=== PATIENT | male | born 1990 | race Caucasian/White ===

== ENCOUNTER 2019-12-07 02:48 | Outpatient (CLI) | payer OTHER, SELFPAY ==
[2019-12-08 18:27] LABS: COVID-19 RT-PCR Result NEGATIVE (Negative)
== END 2019-12-07 03:08 ==
PROVIDERS: PCP Nurse Practitioner Adult Health; Visit Provider Surgery
DX: Z11.59 Encounter for screening for other viral diseases (principal); Z01.818 Encounter for other preprocedural examination
CPT/HCPCS: U0003

== ENCOUNTER 2019-12-10 09:00 | Day surgery (SDC) | payer OTHER, SELFPAY ==
[2019-12-10] VITALS (8 sets, daily range): BP systolic 74–131; BP diastolic 32–75; PULSE 51–65; RESP 12–16; TEMP 35.8–36.5; O2SAT 97–99
[2019-12-10] MEDS: Acetaminophen 500 MG TAB 1000 MG PO (09:38)
[2019-12-10] MEDS: Gabapentin 300 MG CAP PO (09:38)
[2019-12-10] MEDS: Lactated Ringers 1,000 ML 80 ML IV ×2 (09:55→13:19)
[2019-12-10] MEDS: ceFAZolin 2 GM/50 ML BAG IVPB (11:42)
[2019-12-10] MEDS: Bupivacaine LIPOSOME/PF 133 MG/10 ML VIAL IJ ×2 (11:57→12:24)
[2019-12-10] MEDS: Bupivacaine 0.25% Pres-Free 30 ML VIAL (11:57)
--- NOTE | 2019-12-10 12:53 | W.PM.DSUDISC ---
Discharge Plan Disposition Patient Disposition: HOME Condition: Good Discharge Details Reason For Visit: left direct inguinal hernia repair Attending Provider: Medina Chiu Primary Care Provider: Constance Pack Home Meds and New Rx's Prescriptions: New naproxen sodium 550 mg tablet 550 mg PO Q12H Qty: 50 RF: 2 tramadol 50 mg tablet 50 mg PO Q6H PRNQty: 10 RF: 0 Continued gabapentin 300 mg capsule 300 mg PO TID PRNRF: 0 No Action naproxen 500 mg tablet 500 mg PO PRN RF: 0 Discharge Instructions Additional Instructions: Dr. Cihu HERNIA REPAIR ? POSTOPERATIVE INSTRUCTIONS Patients who have this type of surgery can usually be expected to return to work within two weeks and have minimal amounts of discomfort. ? ACTIVITY: The day of surgery should be spent resting. However, you can be up for short periods of time, I.E., going to the bathroom or kitchen. Avoid lifting or straining. On the day following surgery, you can be up and about as desired. ? LIFTING: Restrict your lifting to no more than five (5) pounds for the first week following surgery. For the second week after surgery, don?t lift more than ten pounds. We will decide when you are done with restrictions and when you can return to work, at your follow-up appointment. ? DIET: There are no dietary restrictions following surgery. However, you may want to start with small amounts of liquids to avoid nausea the day of surgery. ? INCISION CARE: You will notice purple skin glue closing the incision. Do not peel this off- it will wear off on its own. After 24 hours you may shower. The dressing may be replaced for comfort, but is not necessary. An ice bag may be applied to the incision for 72 hours following surgery. ? SIGNS OF INFECTION: It is not unusual to have some black and blue discoloration of the skin around the incision, but also scrotum and penis. It will slowly disappear. If you have any increased redness, drainage, fever (above 100 degrees), please contact your doctor for an examination. ? DISCOMFORT: You may expect to have some mild discomfort at the incision sight. If severe pain develops you should contact your doctor for further instructions. ? URINATION: Patients who have surgery occasionally have problems urinating. If you experience problems and are not able to urinate within 6 hours following your surgery, please call your doctor immediately or go to your nearest Emergency Room for evaluation. ? DRIVING: NO driving for five (5) days after surgery or if you are still taking narcotic pain medication. ? MEDICATIONS: Alternate Tylenol 1000mg by mouth every 8hours and Ibuprofen 600mg every 6hours. Take the Tylenol and ibuprofen continuously for the first 72hrs- not just when you have pain. Use the tramadol for breakthrough pain. Use ICE! Twenty minutes on, and then off, continuously for the first 72hours. If you are taking narcotic pain medication, follow the instructions on the label and do not drive. Pain medications can make you very constipated. Make sure you are moving your bowels daily. If not, take Miralax, milk of magnesia or magnesium citrate. ? REPORT: Unusual swelling, severe pain, unresolved nausea, signs of infection, or difficulty in urination to your surgeon. Follow up in clinic with Dr. Chiu in 1-2 weeks. [phone] Follow- up appt 12/25 at 3pm. Activity:: see above Shower/Bathe:: 24 hours Diet:: As Tolerated DS: Diagnosis Discharge Diagnosis (1) Left inguinal hernia: Status: Acute
--- NOTE | 2019-12-10 13:11 | ROE_ITS ---
Date of service: 12/10/19 Time of Service: 13:11 Operative Note Operative Note DATE OF PROCEDURE: 12/10/19 PRE-OP DIAGNOSIS: left inguinal hernia POST-OP DIAGNOSIS: same (direct ) open repair w/ mesh PROCEDURE: open repair w/ mesh SURGEON: Julio César Wynne HEEL PAINTER: Ariadne Jennings ANESTHESIA: MAC ESTIMATED BLOOD LOSS: 3 PATHOLOGY: none sent Patient was transported to: same day Procedure Description: INDICATIONS: The pt is here today for surgery regarding symptomatic left inguinal hernia that has failed outpatient conservative medical management and he is here today for repair. Informed consent was obtained, explaining risks and benefits of the procedure including but not limited to bleeding, infection, pneumonia, blood clots, chronic pain, chronic numbness, dam age to testicle resulting in removal, recurrence of hernia, reaction to Mesh necessitating removal, and other unforetold complications, and complications of anesthesia-which were addressed by the NEWSPAPER REPORTER. The patient is marked in preOp prior to the procedure DESCRIPTION OF PROCEDURE: The pt is then brought to the operative room suite. Anesthesia was administered per the Department of Anesthesia. The patient was prepped and draped in the usual sterile fashion using ChloraPrep & betadine scrub solution. Pause for the cause was done. He did receive preop IV antibiotics, and 30 mL of .25% Marcaine w/ epinephrine was used for local anesthetization. A #12 blade was used to make an incision over the external ring. Electrocautery used to provide hemostasis and dissect down to the fascia. Small debbie is made in the external oblique. This is carried superiorly and inferiorly. The cord is elevated. The nerve was not identified. There is no cord lipomas. Electro-cautery is used to provide hemostasis. A Hiram drain was placed around the cord to assist in mobilization. The cord was explored. There was no hernia sac on the cord. There is a medium direct hernia pushing through the floor/portruding through the transversalis. The sac is elevated and scored and inverted. A medium mesh plug was then placed into the defect and oversewn into transversalis. The patch was then placed on the floor and sewn in using 2-0 Vicryl sewn into the pubic tubercle and the shelving portions of the inguinal ligament. The tails of the mesh are brought around the very superior portion of the cord and tucked under the external oblique. External Bleich is then reapproximated with 2-0 vicryl in a running fashion. The wound was copiously irrigated. There was no bleeding noted. The drain is removed. All s tructures are returned to there normal anatomic position. The external oblique is than closed in a running fashion with 2-0 vicryl, taking care to not incorporate the nerve into the incision. Deep tissue was approximated with 3-0 Vicryl and skin was approximated with 4-0 Monocryl in a running subcuticular fashion. Skin glue is applied. The patient tolerated the procedure without complications to recovery in stable condition. JULIO CÉSAR WYNNE, DO
== END 2019-12-10 15:13 | disposition home or self-care (01) ==
PROVIDERS: PCP Nurse Practitioner Adult Health; Visit Provider Surgery
PROC: (CPT 49505; principal; 2019-12-10 09:30)
DX: K40.90 Unilateral inguinal hernia, without obstruction or gangrene, not specified as recurrent (principal)
CPT/HCPCS: 49505; 76942; C1781; J0690; J1100; J1885; J2001; J2405

== ENCOUNTER 2020-12-09 01:57 | Outpatient (CLI) | payer OTHER, SELFPAY ==
[2020-12-09 09:12] LABS: Abs Immature Grans 0.01 10^3/uL (0.0-0.06); Absolute Basophil Count 0.01 10^3/uL (0.0-0.2); Absolute Lymphocyte Count 1.72 10^3/uL (1.2-3.4); Absolute Monocyte Count 0.34 10^3/uL (0.1-0.8); Absolute Neutrophil Count 2.01 10^3/uL (1.2-6.7); Basophils % 0.2; Eosinophils % 4.7; HCT 43.5 % (40.0-50.0); HGB 14.5 g/dL (13.5-17.5); Immature Grans % 0.2; Lymphocytes % 40.1; MCH 30.8 pg (27.0-33.0); MCHC 33.3 % (32.0-36.0); MCV 92.4 fL (80-95); MPV 10.7 fL (8.0-11.0); Monocytes % 7.9; Neutrophils % 46.9; Nucleated RBC 0 %; Platelet Count 201 10^3/uL (130-400); RBC 4.71 10^6/uL (4.36-5.78); RDW 11.8 % (11.8-14.1); WBC 4.29 10^3/uL (4.4-10.8)
[2020-12-09 11:07] LABS: ALT 27 U/L (16-63); AST 18 U/L (15-37); Albumin 4.4 g/dL (3.4-5.0); Alkaline Phosphatase 78 U/L (46-116); Anion Gap 7.5 mmol/L (3-11); BUN 18 mg/dL (7-18); Bilirubin, Total 0.6 mg/dL (0.2-1.0); CO2 30.5 mmol/L (21.0-32.0); CREATININE 1.1 mg/dL (0.70-1.30); Calcium 8.7 mg/dL (8.5-10.1); Calculated LDL 94 mg/dL (<100); Chloride 106 mmol/L (98-107); Cholesterol 159 mg/dL (<200); Glucose 85 mg/dL (74-106); HDL Cholesterol 59 mg/dL (40-60); Potassium 4.6 mmol/L (3.5-5.1); Sodium 144 mmol/L (136-145); TSH (W/Ref FT4) 1.71 uIU/mL (0.36-3.74); Total Protein 7.2 g/dL (6.4-8.2); Triglyceride 30 mg/dL (<150); Vitamin B12 1094 pg/mL (193-986)
[2020-12-10 10:16] LABS: Hepatitis C Ab w Rflx HCV PCR Negative (Negative)
[2020-12-10 10:24] LABS: HIV-1/2 Ag & Ab Screen Negative (Negative)
[2020-12-12 17:36] LABS: Testosterone, Total 643 ng/dL (240-950)
== END 2020-12-09 01:58 | disposition home or self-care (01) ==
LOC: LBO 01:58
PROVIDERS: PCP Nurse Practitioner Adult Health; Visit Provider Nurse Practitioner Adult Health
DX: R53.83 Other fatigue; Z13.220 Encounter for screening for lipoid disorders; Z11.4 Encounter for screening for human immunodeficiency virus [HIV]; Z11.59 Encounter for screening for other viral diseases; Z13.1 Encounter for screening for diabetes mellitus
CPT/HCPCS: 36415; 80053; 80061; 84403; 86803; 87389; 82607; 84443; 85025

== ENCOUNTER → 2021-09-08 01:46 | Outpatient (CLI) | payer OTHER, SELFPAY ==
--- NOTE | 2021-09-08 11:35 | DI.RAD_ITS ---
Exam(s) XR LUMBAR SPINE COMPLETE EXAM: XR LUMBAR SPINE COMPLETE CLINICAL HISTORY: LOW BACK PAIN, M54.50,[id number]. TECHNIQUE: 2D digital imaging was performed. COMPARISON: No exams were available for comparison FINDINGS: Five views There is no evidence of fracture, listhesis, or pars defects. There is mild disc space narrowing at L4-5 and L5-S1 levels and mild anterior osseous lipping at L4-5 level. No facet arthropathy. Sacroi liac joints appear unremarkable. No scoliosis. No osseous lesions. IMPRESSION: Minimal disc space narrowing noted at L4-5 level. DATA REPOSITORY: RADIATION DOSE DELIVERED:
== END ==
PROVIDERS: PCP Nurse Practitioner Adult Health; Visit Provider Nurse Practitioner Acute Care
DX: M54.59 Other low back pain (principal); M51.37 Other intervertebral disc degeneration, lumbosacral region
CPT/HCPCS: 72110

== ENCOUNTER 2022-04-01 07:22 | Emergency (ER) | payer OTHER, SELFPAY ==
[2022-04-01 07:26] VITALS: BP 121/78; PULSE 86; RESP 16; TEMP 37; O2SAT 100
--- NOTE | 2022-04-01 08:03 | W.ED.GENAD ---
Discharge Plan Disposition Patient Disposition: Home Condition: Stable Discharge Details Clinical Impression: Headache, Viral syndrome Primary Care Provider: Constance Pack ED Provider: Alin Falk Home Meds and New Rx's Prescriptions: New ondansetron 4 mg tablet,disintegrating 4 mg PO Q8H PRN (Reason: Nausea) Qty: 10 0RF Continued gabapentin 300 mg capsule 300 mg PO TID PRN Label Comments: [facility] celecoxib [Celebrex] 200 mg capsule 200 mg PO BID Discharge Instructions Instructions: Viral Syndrome (ED), General Headache (ED) Additional Instructions: Please drink small amounts of fluid often in order to stay hydrated. Allow for plenty of rest. Please contact your primary care physician to arrange follow-up. Return to the ER immediately for any worsening or new concerning symptoms. Stand Alone Forms: Work Release Referrals: Constance Pack, [employer] [Primary Care Provider] - Discharge Data Discharge Date/Time-TO BE ENTERED AT DEPARTURE: 04/01/22 12:56 Medical Decision Making <Julia Pitt DO - Last Filed: 04/01/22 20:44> 0740 -- 31-year-old male with a history of chronic back pain on 3 times daily gabapentin and as needed Celebrex presents with 5 days of headache, generalized malaise and fatigue, nausea, vomiting, diarrhea and body aches. Vitals within normal limits. Patient appears generally fatigued but nontoxic. No acute findings on ENT exam. Lungs clear throughout. Abdomen soft and nontender. I checked an oral temp in the room and it was 98.6. High suspicion for influenza or COVID. Consider other viral illness. History and presentation does not appear consistent with meningitis, CVA or subarachnoid hemorrhage. A SARS COVID and flu antigen test on arrival obtained by nurse and negative. Will obtain a Fluvid, screening labs and give IV fluids, IV Tylenol, IV Toradol, IV Zofran and reassess. 0815 --Case endorsed to Dr. Falk to follow-up on labs and patient response to medication. If patient does not feel any better or labs concerning, consider head or abdominal imaging. Medical Records Medical records reviewed: Yes I reviewed the patient's medical records. <Alin Falk MD - Last Filed: 04/01/22 12:35> 0740 -- 31-year-old male with a history of chronic back pain on 3 times daily gabapentin and as needed Celebrex presents with 5 days of headache, generalized malaise and fatigue, nausea, vomiting, diarrhea and body aches. Vitals within normal limits. Patient appears generally fatigued but nontoxic. No acute findings on ENT exam. Lungs clear throughout. Abdomen soft and nontender. I checked an oral temp in the room and it was 98.6. High suspicion for influenza or COVID. Consider other viral illness. History and presentation does not appear consistent with meningitis, CVA or subarachnoid hemorrhage. A SARS COVID and flu antigen test on arrival obtained by nurse and negative. Will obtain a Fluvid, screening labs and give IV fluids, IV Tylenol, IV Toradol, IV Zofran and reassess. 0815 --Case endorsed to Dr. Falk to follow-up on labs and patient response to medication. If patient does not feel any better or labs concerning, consider head or abdominal imaging. HPI <Julia Pitt DO - Last Filed: 04/01/22 20:44> General Mode of arrival: ambulatory. Date/Time Provider Initiated Documentation: 04/01/22 07:32. Limitations to Documentation: no limitations. Information obtained by: patient. HPI Narrative: Patient is a 31-year-old male with a history of chronic back pain on gabapentin 3 times daily and as needed Celebrex presents the ED with 5 days of headache, body aches, general malaise, nausea, vomiting, diarrhea. Patient states the headache is bothering him the most. He states his symptoms started with a right-sided headache 5 days ago and this morning is now developing pain on the left side of his head. Patient states the headache is currently 9/10. He last took Tylenol at 145 this morning. He states he has been taking Tylenol every 6 hours for the past 5 days and states it gives him about an hour of relief and then the headache returns. He states his last dose of ibuprofen was yesterday afternoon. He states he has been vomiting occasionally and states he last vomited yesterday. He states his last bowel movement was 3 days ago and was diarrhea. He admits to generalized fatigue and feels pain in his entire body with walking. He states he has not been eating or drinking much secondary to the nausea. He states his last dose of Celebrex for his chronic back pain was 1 week ago. He states he took a COVID antigen test yesterday which was negative. He denies any known fever, neck pain, ear pain, sore throat, chest pain, difficulty breathing, abdominal pain or urinary symptoms. He does state his urine has been dark in color. Related Data Home Medications Medication Instructions Recorded Confirmed gabapentin 300 mg capsule 300 mg PO TID PRN 09/19/19 04/01/22 celecoxib 200 mg capsule (Celebrex) 200 mg PO BID 01/25/22 04/01/22 ondansetron 4 mg disintegrating 4 mg PO Q8H PRN Nausea #10 tabs 04/01/22 tablet Previous Rx's Medication Instructions Recorded ondansetron 4 mg disintegrating 4 mg PO Q8H PRN Nausea #10 tabs 04/01/22 tablet Allergies Allergy/AdvReac Type Severity Reaction Status Date / Time No Known Allergies Allergy Verified 04/01/22 07:30 General Stated Complaint: Nausea/Vomit/Diar MICHAEL: 3 Review of Systems <Julia Pitt DO - Last Filed: 04/01/22 20:44> All systems reviewed & are unremarkable except as noted in HPI and below Constitutional Constitutional: Reports as per HPI, Reports body ache(s), Denies chills, Reports fatigue, Denies fever(s), Reports headache(s) and Reports malaise Eyes Eyes: Denies blurry vision ENT Ears, Nose, Mouth, and Throat: Denies dizziness, Reports headache(s), Denies sore throat and Denies throat swelling Cardiovascular Cardiovascular: Denies chest pain and Denies dyspnea Respiratory Respiratory: Denies cough and Denies dyspnea Gastrointestinal Gastrointestinal: Denies abdominal pain, Reports diarrhea, Reports nausea and Reports vomiting Genitourinary Genitourinary: Denies hematuria and Denies dysuria Musculoskeletal Musculoskeletal: Denies back pain and Denies numbness Integumentary/Breasts Skin/Breast: Denies lesions and Denies rash Neurologic Neurologic: Denies dizziness, Reports headache(s), Denies localized weakness and Denies numbness Endocrine Endocrine: Reports fatigue Allergic/Immunologic Allergic/Immunologic: Denies throat swelling PFS <DO Johanne Agrawal Last Filed: 04/01/22 20:44> All Active Problems (Updated 04/01/22 @ 12:31 by Alin Falk MD) Headache (Acute) Viral syndrome (Acute) Onychocryptosis (Acute) Medical History (Updated 04/01/22 @ 12:31 by Alin Falk MD) Blast injury ; Injury to ear, unsure which one History of fracture of finger B/L middle requiring surgical repair s/p childhood trampoline trauma Low back pain [facility]; [facility] related; [facility] Surgical History (Updated 04/01/22 @ 08:07 by Julia Pitt DO) H/O left inguinal hernia repair History of tonsillectomy 2011 Hx of LASIK 2011 Family History Maternal Grandfather Lung cancer Maternal Uncle Diabetes Father Hypertension Unknown family medical history pt doesn't know about his father's medical history Mother Hypothyroid Maternal Grandmother Afib Social History Smoking/Tobacco Use Status: Never Second Hand Exposure: Yes Smoking risk assessment performed?: Yes Alcohol Intake: current Alcohol Intake frequency: a few times a month Alcohol type: beer Drug use: Never Substance use type: does not use Details: alcohol: t-14, wine Adopted: No Caregiver/Support person: No Foster care: No Household members: spouse and children Housing: house Number of Children: 2 Communication Needs: None Education Level: college Details: Bachelors Do you need help understanding health information?: Never 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 [employer] Pets and animals: Yes Sexually active: Yes Do you think of yourself as: straight/heterosexual Current gender identity: male What is your relationship status?: How often do you talk on the phone with friends or family?: three or more times per week How often do you get together with friends or relatives?: once per week How often do you attend hinduism or mu-ism services?: decline to answer Do you belong to any clubs or organized social groups?: no Panel score (0-1 are the most socially isolated patients): 2 What type of physical activity do you participate in: weight lifting, resistance training and other Details: basketball Duration: 30-45 minutes/day Frequency: 3-4 times per week Special michoacano needs: No Seatbelt use: always Helmet use: Yes Drive intox or ride w/intox electric screw driver operator: No Working smoke detector in home: Yes Fire extinguisher in home: Yes Carbon monox detector in home: Yes Firearms in home: No Do you feel safe at home: Yes Do you feel safe in your relationship?: Yes Exam <Julia Pitt DO - Last Filed: 04/01/22 20:44> Const General: cooperative, healthy appearing and no acute distress [facility] Head: normal to inspection Ears: hearing grossly normal bilaterally, external ears normal and TM abnormal scarred bilaterally (worse on right side) General nose exam: external nose normal Face and sinus: normal facial exam Mouth: oral mucosae normal Throat: posterior oropharynx normal, uvula midline and no peritonsillar masses Eyes General: appearance normal, both eyes and all related structures Pupils: PERRL EOM: EOM intact bilaterally Neck Neck: normal visual inspection, no lymphadenopathy, no meningeal signs, trachea midline, supple, no anterior neck swelling and No submandibular swelling Lymphatic: no lymphadenopathy noted Chest Chest: normal inspection of the chest and no tenderness Resp Effort & Inspection: normal respiratory effort and able to speak in complete sentences Auscultation: clear to auscultation bilaterally Cardio Rate: regular rate Rhythm: regular rhythm GI Inspection: normal to inspection Palpation: soft, not firm, not rigid and nontender Auscultation: hypoactive bowel sounds Skin General skin exam: no rashes or lesions noted Neuro General: patient alert, patient awake, patient oriented x3, moves all extremities, no meningeal signs and no focal motor deficits Cranial Nerves: CN's II-XI intact bilaterally Cognition: normal cognition Speech: speech normal Motor: muscle tone normal throughout Sensory Exam: no sensory deficits noted Extrem General: normal to inspection, full ROM, calf tenderness and no edema Psych Appearance: grossly normal Mental Status: mental status grossly normal Speech and Movement: speech and movement normal Affect: normal affect Course <DO Johanne Agrawal Last Filed: 04/01/22 20:44> Vital Signs Vital signs: Vital Signs Temperature 98.6 F 04/01/22 07:26 Pulse 86 04/01/22 07:26 Respiratory Rate 16 04/01/22 07:26 Blood Pressure 121/78 04/01/22 07:26 Pulse Oximetry 100 04/01/22 07:26 Temperature 98.6 F 04/01/22 07:26 Temperature Source Temporal Artery Scan 04/01/22 07:26 Pulse 86 04/01/22 07:26 Respiratory Rate 16 04/01/22 07:26 Respiratory Effort Non-Labored 04/01/22 07:28 Blood Pressure 121/78 04/01/22 07:26 Blood Pressure Position Sitting 04/01/22 07:26 Pulse Oximetry 100 04/01/22 07:26 Oxygen Delivery Method Room Air 04/01/22 07:26 Oxygen Flow Rate 0 04/01/22 07:26 Pain Level 8 04/01/22 07:26 Sign Out <Julia Pitt DO - Last Filed: 04/01/22 20:44> Sign Out Data: Sign Out Comment: Flulike symptoms for 5 days. Afebrile. Admits to migraine-like headache. No meningeal signs. SARS covid/flu antigen negative. Follow up on labs, fluvid and pt response to meds/IV fluids. Last updated by Julia Pitt DO at 04/01/22 08:04 PAWSS <Julia Pitt DO - Last Filed: 04/01/22 20:44> Have you Been Recently Intoxicated or Drunk Within the Last 30 days?: No Have you Ever Experienced Previous Episodes of Alcohol Withdrawal?: No Have you ever Experienced Withdrawal Seizures?: No Have you ever Experienced Delirium Tremens(DT)s?: No Have you ever undergone Alcohol Rehabilitation Treatment (i.e, inpt ot outpatient treatment programs)?: No Have you ever Experienced Blackouts?: No Have you ever Combined Alcohol with other Downers within the last 90 days?: No Have you ever Combined Alcohol with any other Substance of Abuse during the last 90 days?: No Result: 0 <Alin Falk MD - Last Filed: 04/01/22 12:35> Result: 0
[2022-04-01] MEDS: Ondansetron 4 MG/2 ML VIAL IVP (08:17)
[2022-04-01] MEDS: ACETAMINOPHEN 1,000 MG/100 ML BTL 400 MG IVPB (08:17)
[2022-04-01] MEDS: Normal Saline 1,000 ML 1000 ML IV (08:18)
[2022-04-01] MEDS: Ketorolac 30 MG/ML VIAL IVP (08:18)
[2022-04-01 08:41] LABS: Abs Immature Grans 0.01 10^3/uL (0.0-0.06); Absolute Basophil Count 0.01 10^3/uL (0.0-0.2); Absolute Eosinophil Count 0.07 10^3/uL (0.0-0.7); Absolute Lymphocyte Count 1.51 10^3/uL (1.2-3.4); Basophils % 0.2; Eosinophils % 1.2; HCT 46.8 % (40.0-50.0); HGB 15.8 g/dL (13.5-17.5); Immature Grans % 0.2; Lymphocytes % 25.6; MCH 30.6 pg (27.0-33.0); MCHC 33.8 % (32.0-36.0); MCV 91 fL (80-95); MPV 10.4 fL (8.0-11.0); Monocytes % 11.9; Neutrophils % 60.9; Platelet Count 207 10^3/uL (130-400); RBC 5.16 10^6/uL (4.36-5.78); RDW 11.5 % (11.8-14.1); RDW-SD 38.8 fL
[2022-04-01 09:06] LABS: COVID-19 PCR Negative (Negative); Influenza A PCR Negative (Negative); Influenza B PCR Negative (Negative); RSV PCR Negative (Negative)
[2022-04-01 09:07] LABS: Source Nasopharynx
--- NOTE | 2022-04-01 09:30 | DI.CT_ITS ---
Exam(s) CT HEAD WO EXAM: CT HEAD WO CLINICAL HISTORY: right sided GALEANA 4 days, ptsosis rt. TECHNIQUE: Imaging Protocol: Axial computed tomography images with coronal and sagittal reformatted images were created and reviewed COMPARISON: No exams were available for comparison FINDINGS: There are no skull fractures. There is no fluid in the visualized paranasal sinuses. There is no evidence of intracranial hemorrhage, mass effect, or shift of midline structures. There are no extra-axial fluid collections. The ventricles are not enlarged or shifted and there is no blo od within the ventricular system nor within the basal cisterns. IMPRESSION: No acute intracranial findings on this noninfused CT scan of the brain. RADIATION DOSE DELIVERED: 845.91mGy.cm Total DLP DATA REPOSITORY: All CT scans at this facility are submitted to the National Radiology Data Registry (NRDR) Dose Index Registry (DIR) with the [employer] (A[employer]). RADIATION OPTIMIZATION: All CT scans at this facility use at least one of these dose optimization te chniques: automated exposure control; mA and/or kV adjustment per patient size (includes targeted exa ms where dose is matched to clinical indication); or iterative reconstruction.
--- NOTE | 2022-04-01 11:15 | DI.MRI_ITS ---
Exam(s) MR BRAIN WO/W EXAM: MR BRAIN WO/W CLINICAL HISTORY: GALEANA, abnormal finding on rt TECHNIQUE: Multiplanar multisequence MRI of the brain was performed. Both noninfused and contrast i nfused sequences were performed. IV Contrast injected was cc Dotarem. COMPARISON: Scan earlier same day was reviewed. FINDINGS: CEREBRAL PARENCHYMA: No evidence of intracranial hemorrhage, mass effect nor shift of midline structu re. No extraaxial fluid collections. Ventricles are not enlarged nor shifted. There is no significant focal signal abnormality in the cerebellar hemispheres nor within the osmar, m idbrain, and thalami. There is no abnormal signal abnormality in the periventricular white matter. There are no ring enhancing lesions in the brain. There is no abnormal meningeal enhancement. DWI: No areas of restricted diffusion to suggest acute ischemic event. SWI: No evidence of microhemorrhages. PITUITARY GLAND: No mass nor parasellar abnormality. No obvious abnormality in the cavernous sinuses. FLOW VOIDS: The expected flow void are noted. No evidence of obvious aneurysm nor obvious vascular ma lformation. PARANASAL SINUSES: The visualized paranasal sinuses appear unremarkable. ORBITS: No obvious abnormal findings. IMPRESSION: 1. No significant intracranial findings on this MRI scan of the brain. 2. No abnormal enhancing intracranial findings. DATA REPOSITORY:
[2022-04-01 11:22] LABS: ALT 25 U/L (16-63); AST 18 U/L (15-37); Albumin 4.1 g/dL (3.4-5.0); Alkaline Phosphatase 77 U/L (46-116); Anion Gap 6.7 mmol/L (3-11); BUN 12 mg/dL (7-18); Bilirubin, Total 0.8 mg/dL (0.2-1.0); CO2 28.3 mmol/L (21.0-32.0); Calcium 8.8 mg/dL (8.5-10.1); Chloride 103 mmol/L (98-107); Estimated GFR 103.19 (mL/min/1.73m2); Glucose 98 mg/dL (74-106); Lipase 125 U/L (73-393); Potassium 4.1 mmol/L (3.5-5.1); Sodium 138 mmol/L (136-145); Total Protein 7.3 g/dL (6.4-8.2)
[2022-04-01] MEDS: Gadoterate meglumine 20 ML VIAL IVP (12:00)
--- NOTE | 2022-04-01 12:35 | ED.PROG_ITS ---
Date of service: 04/01/22 Time of Service: 12:35 Medical Decision Making Care was signed out by Dr. Pitt, please see her documentation regarding initial ED presentation and course. Plan at signout was to follow-up labs and reassess. Labs reviewed and nondiagnostic. No leukocytosis. Influenza and COVID-neg ative. Patient was reassessed and notes continued right frontal parietal headache. He has no history of headaches. Patient has no meningeal signs. CT of the head was interpreted by radiology, questionable finding right frontal parietal question meningioma. I spoke with Dr. Mckinney who recommends MRI of the brain. MRI of the brain was obtained and interpreted by radiology: Normal. Plan for discharge with outpatient follow-up. Suspect viral syndrome. All results were discussed with the patient. Usual and customary discharge instructions reviewed. Sign Out Sign Out Data: Sign Out Comment: Flulike symptoms for 5 days. Afebrile. Admits to migraine- like headache. No meningeal signs. SARS covid/flu antigen negative. Follow up on labs, fluvid and pt response to meds/IV fluids. Last updated by Julia Pitt DO at 04/01/22 08:04 Discharge Plan Disposition Patient Disposition: Home Condition: Stable Discharge Details Clinical Impression: Headache, Viral syndrome Primary Care Provider: Constance Pack ED Provider: Alin Falk Home Meds and New Rx's Prescriptions: New ondansetron 4 mg tablet,disintegrating 4 mg PO Q8H PRN (Reason: Nausea) Qty: 10 0RF Continued gabapentin 300 mg capsule 300 mg PO TID PRN Label Comments: [facility] & chronic low back pain celecoxib [Celebrex] 200 mg capsule 200 mg PO BID Discharge Instructions Instructions: Viral Syndrome (ED), General Headache (ED) Additional Instructions: Please drink small amounts of fluid often in order to stay hydrated. Allow for plenty of rest. Please contact your primary care physician to arrange follow-up. Return to the ER immediately for any worsening or new concerning symptoms. Referrals: Constance Pack NP [Primary Care Provider] -
[2022-04-01 12:46] VITALS: BP 106/69; PULSE 62; TEMP 36.7; O2SAT 100
[2022-04-01 12:53] VITALS: BP 106/69; PULSE 62; TEMP 36.7; O2SAT 100
== END 2022-04-01 12:56 | disposition home or self-care (01) ==
PROVIDERS: Physician Assistant; Emergency Provider Student in an Organized Health Care Education/Training Program; PCP Nurse Practitioner Adult Health
DX: B34.9 Viral infection, unspecified (principal); Z20.822 Contact with and (suspected) exposure to COVID-19
CPT/HCPCS: 36415; 70553; 80053; 83690; 87637; 96361; 96365; 96375; 99285; 70450; 85025; 99284; J0131; J1885; J2405

== ENCOUNTER 2022-09-23 02:17 | Outpatient (CLI) | payer OTHER, SELFPAY ==
--- NOTE | 2022-09-23 09:00 | DI.RAD_ITS ---
Exam(s) XR FOOT RT COMPLETE EXAM: XR FOOT RT COMPLETE CLINICAL HISTORY: Right ankle/foot pain s/p injury to right foot/ankLE,M25.579,M79.673. TECHNIQUE: 2D digital imaging was performed. Three views. COMPARISON: No exams were available for comparison FINDINGS: BONES: No acute fracture is present. No bony destructive lesion is seen. Enthesophyte at Achilles in sertion on calcaneus. JOINTS: No dislocation present. No significant degenerative changes. SOFT TISSUE: Normal. IMPRESSION: No acute abnormality. DATA REPOSITORY: RADIATION DOSE DELIVERED:
--- NOTE | 2022-09-23 09:03 | DI.RAD_ITS ---
Exam(s) XR ANKLE RT COMPLETE EXAM: XR ANKLE RT COMPLETE CLINICAL HISTORY: Right ankle/foot pain s/p injury to right foot/ankLE,M79.673,M25.579. TECHNIQUE: 2D digital imaging was performed. Three views. COMPARISON: No exams were available for comparison FINDINGS: BONES: No acute fracture is present. No bony destructive lesion is seen. Enthesophyte at Achilles in sertion on calcaneus. Small smoothly marginated bony densities seen beneath the malleoli do not appe ar acute. JOINTS: The ankle mortise is normally aligned. SOFT TISSUE: Normal. IMPRESSION: No acute abnormality. DATA REPOSITORY: RADIATION DOSE DELIVERED:
== END 2022-09-23 02:37 ==
PROVIDERS: PCP Nurse Practitioner Adult Health; Visit Provider Physical Therapy Assistant
DX: M25.571 Pain in right ankle and joints of right foot (principal)
CPT/HCPCS: 73610; 73630

== ENCOUNTER 2023-11-11 00:16 | Outpatient (CLI) | payer OTHER, SELFPAY ==
--- NOTE | 2023-11-11 06:15 | DI.MRI_ITS ---
Exam(s) MR PELVIS WO/W EXAM: MR PELVIS WO/W CLINICAL HISTORY: groin/testicle pain,spermatic cord/s.p hernia repaIR TECHNIQUE: Multiplanar multisequence MRI of the Abdomen was performed. CONTRAST MATERIAL: IV Contrast: 20 mL of Dotarem contrast administered. COMPARISON: No exams were available for comparison FINDINGS: Urinary bladder: Unremarkable. Prostate gland: Unremarkable. Vasculature: Unremarkable. Visualized bowel: Unremarkable. Musculature : Unremarkable. No significant fatty atrophy is appreciated. Scrotum: The testicles are unremarkable. No evidence of a testicular mass is seen. The inguinal can als are grossly unremarkable. No evidence of a recurrent hernia. The scrotal soft tissues are unrem arkable. The visualized portions of the penis are unremarkable. There is a trace amount of fluid in the scrotal sac on the right. This may represent a very small hydrocele. Soft Tissues: There are postsurgical changes of a prior left inguinal hernia repair. No suspicious s oft tissue masses are present. Bone: There is normal marrow signal. The hips, symphysis pubis, and visualized sacroiliac joints are unremarkable. Lymph Nodes: No significant inguinal adenopathy is present. Enhancement: No suspicious enhancement is identified. No enhancing masses are seen. IMPRESSION: 1. Status post left inguinal hernia repair. 2. Otherwise unremarkable examination. DATA REPOSITORY:
[2023-11-11] MEDS: Gadoterate meglumine 20 ML SYRINGE IVP (08:28)
[2023-11-11] MEDS: Normal Saline Flush 10 ML SYR IVP (08:29)
== END 2023-11-11 00:36 ==
LOC: DI 00:16
PROVIDERS: PCP Nurse Practitioner Adult Health; Visit Provider Surgery
DX: Z98.890 Other specified postprocedural states; Z87.19 Personal history of other diseases of the digestive system
CPT/HCPCS: 72197

== ENCOUNTER 2023-12-08 15:40 | Outpatient (REF) | payer OTHER, SELFPAY ==
--- NOTE | 2023-12-08 15:42 | SKI_PTH ---
PATIENT: Miguel Ruiz LOC: [facility] U#:[id number] AGE/SX: 33/M ROOM: RE12/08/[address]: Medina Chiu : 1990 BED: DIS: 12/08/2023 SPEC #: [id number] RECD: 12/08/23 17:35 STATUS: SHREYA REQ #: [id number] ELLIOT: 12/08/23 15:[address]: Medina Chiu DEPT: Surgical Specimen RECD BY: Terrie Welch ENTERED: 12/08/23 17:36 SP TYPE: LUCERO NATARJAAN DR: Constance Pack APRN Tissues: 1 - SKIN BIOPSY(SHAVE/PUNCH) Procedures: IMMUNOPEROXIDASE STAIN SKIN LEVEL 4 Comments: [id number]
== END 2023-12-08 15:41 | disposition home or self-care (01) ==
LOC: LBN 15:40
PROVIDERS: PCP Nurse Practitioner Adult Health; Visit Provider Surgery
DX: D22.5 Melanocytic nevi of trunk (principal)
CPT/HCPCS: 88305; 88361